=== PATIENT | male | born 1995 | race Caucasian/White ===

== ENCOUNTER 2018-04-27 19:41 | Emergency (ER) | payer OTHER ==
[~2018-04-27] VITALS: Ht 188 cm; Wt 88.0 kg
[2018-04-27 19:46] VITALS: Ht 188 cm; Wt 88.0 kg
[2018-04-28 06:21] VITALS: BP 137/79
== END 2018-04-28 06:21 | disposition home or self-care (01) ==
LOC: ED 19:41
DX: F20.89 Other schizophrenia (principal)

== ENCOUNTER 2018-05-08 17:39 | Emergency (ER) | payer OTHER ==
[~2018-05-08] VITALS: Ht 188 cm; Wt 81.6 kg
[2018-05-08 17:41] VITALS: BP 187/93; Ht 188 cm; Wt 81.6 kg
== END 2018-05-08 18:30 | disposition other institution (70) ==
LOC: ED 17:39
DX: S20.212A Contusion of left front wall of thorax, initial encounter (principal); S00.93XA Contusion of unspecified part of head, initial encounter; S80.212A Abrasion, left knee, initial encounter; S80.211A Abrasion, right knee, initial encounter; F15.10 Other stimulant abuse, uncomplicated; F20.9 Schizophrenia, unspecified; Y04.8XXA Assault by other bodily force, initial encounter; Y93.89 Activity, other specified; Y92.89 Other specified places as the place of occurrence of the external cause; Y99.8 Other external cause status

== ENCOUNTER 2018-05-08 17:39 | Emergency (ER) | payer OTHER | END 2018-05-08 18:30 | disposition other institution (70) | LOC: ED 17:39 | DX: Z02.89 Encounter for other administrative examinations (principal) ==

== ENCOUNTER 2018-06-06 02:21 | Emergency (ER) | payer OTHER ==
[~2018-06-06] VITALS: Ht 188 cm; Wt 77.6 kg
[2018-06-06 02:25] VITALS: BP 141/88; Ht 188 cm; Wt 77.6 kg
== END 2018-06-06 03:04 | disposition left against medical advice (07) ==
LOC: ED 02:21
DX: Z53.21 Procedure and treatment not carried out due to patient leaving prior to being seen by health care provider (principal)

== ENCOUNTER 2018-06-08 10:26 | Emergency (ER) | payer OTHER ==
[~2018-06-08] VITALS: Ht 188 cm; Wt 68.0 kg
[2018-06-08 10:35] VITALS: Ht 188 cm; Wt 68.0 kg
[2018-06-08 11:20] LABS: ALBUMIN 4.4 g/dL (3.4-5.0); ALKALINE PHOSPHATASE 98 U/L (46-116); ALT/SGPT 32 U/L (16-63); AST/SGOT 90 U/L (15-37); BILIRUBIN TOTAL 1.3 mg/dL (0.20-1.00); CARBON DIOXIDE 24.7 mmol/L (21-32); CREATININE SERUM 1.2 mg/dL (0.7-1.3); GFR1 > 60 mL/min; GLUCOSE SERUM 69 mg/dL (74-106); TOTAL PROTEIN, SERUM 7.6 g/dL (6.4-8.2)
[2018-06-08 11:32] LABS: CHLORIDE SERUM 98 mmol/L (98-107); POTASSIUM SERUM 3.4 mmol/L (3.5-5.1); SODIUM SERUM 135 mmol/L (136-145)
[2018-06-08 11:33] LABS: BASOPHIL % 0.5 % (0-2); PLATELET COUNT 275 x10^3mcL (130-400); RED CELL DISTRIBUTION WIDTH 13.4 % (11.5-14.5)
[2018-06-08 13:13] LABS: AMPHETAMINE QUAL UR POSITIVE (See below)
[2018-06-08 17:25] VITALS: BP 103/63
== END 2018-06-08 17:25 | disposition home or self-care (01) ==
LOC: ED 10:26
PROVIDERS: Emergency Medicine
DX: T43.621A Poisoning by amphetamines, accidental (unintentional), initial encounter (principal); G93.40 Encephalopathy, unspecified; F20.9 Schizophrenia, unspecified; X58.XXXA Exposure to other specified factors, initial encounter
CPT/HCPCS: 36415; 82962; G0480; Q0092; Q0163

== ENCOUNTER 2018-06-24 19:20 | Emergency (ER) | payer OTHER ==
[~2018-06-24] VITALS: Ht 182.9 cm; Wt 77.1 kg
[2018-06-24 19:29] VITALS: BP 129/81; Ht 182.9 cm; Wt 77.1 kg
== END 2018-06-24 19:51 | disposition left against medical advice (07) ==
LOC: ED 19:20
DX: R53.1 Weakness (principal); R51 Headache; F20.9 Schizophrenia, unspecified
CPT/HCPCS: 83880; G0480

== ENCOUNTER 2018-08-04 18:36 | Emergency (ER) | payer OTHER ==
[~2018-08-04] VITALS: Ht 188 cm; Wt 83.9 kg
[2018-08-04 18:44] VITALS: Ht 188 cm; Wt 83.9 kg
[2018-08-04 21:34] VITALS: BP 147/80
== END 2018-08-04 21:34 | disposition other institution (70) ==
LOC: ED 18:36
DX: F25.9 Schizoaffective disorder, unspecified (principal); R07.89 Other chest pain

== ENCOUNTER 2018-08-04 18:36 | Emergency (ER) | payer OTHER | END 2018-08-04 21:34 | disposition other institution (70) | LOC: ED 18:36 | DX: Z02.89 Encounter for other administrative examinations (principal) ==

== ENCOUNTER 2018-11-27 11:06 | Emergency (ER) | payer OTHER ==
[~2018-11-27] VITALS: Ht 188 cm; Wt 78.9 kg
[2018-11-27 11:18] VITALS: Ht 188 cm; Wt 78.9 kg
[2018-11-27 11:37] LABS: BASOPHIL % 0.3 % (0-2); PLATELET COUNT 242 x10^3mcL (130-400); RED CELL DISTRIBUTION WIDTH 13.6 % (11.5-14.5)
[2018-11-27 11:41] LABS: CALCIUM 8.4 mg/dL (8.5-10.1); CHLORIDE SERUM 104 mmol/L (98-107); CREATININE SERUM 0.8 mg/dL (0.7-1.3); GFR1 > 60 mL/min; GLUCOSE SERUM 106 mg/dL (74-106); POTASSIUM SERUM 3.8 mmol/L (3.5-5.1); SODIUM SERUM 140 mmol/L (136-145)
[2018-11-27 11:46] LABS: ALBUMIN 3.7 g/dL (3.4-5.0); ALKALINE PHOSPHATASE 104 U/L (46-116); ALT/SGPT 33 U/L (16-63); AST/SGOT 46 U/L (15-37); BILIRUBIN TOTAL 0.9 mg/dL (0.20-1.00); TOTAL PROTEIN, SERUM 6.9 g/dL (6.4-8.2)
[2018-11-27 11:47] LABS: CHOLESTEROL 102 mg/dL (<200)
[2018-11-27 14:09] LABS: AMPHETAMINE QUAL UR POSITIVE (See below)
[2018-11-27 14:25] VITALS: BP 138/74
== END 2018-11-27 14:25 | disposition left against medical advice (07) ==
LOC: ED 11:06
PROVIDERS: Specialist
DX: F15.10 Other stimulant abuse, uncomplicated (principal); F20.9 Schizophrenia, unspecified
CPT/HCPCS: G0480; J7030; Q0092

== ENCOUNTER 2018-12-05 09:13 | Emergency (ER) | payer OTHER ==
[~2018-12-05] VITALS: Ht 188 cm; Wt 75.3 kg
[2018-12-05 09:17] VITALS: BP 102/74; Ht 188 cm; Wt 75.3 kg
== END 2018-12-05 10:17 | disposition left against medical advice (07) ==
LOC: ED 09:13
DX: R42 Dizziness and giddiness (principal); R11.10 Vomiting, unspecified; R51 Headache; F20.9 Schizophrenia, unspecified; F19.10 Other psychoactive substance abuse, uncomplicated; Z59.0 Homelessness

== ENCOUNTER 2019-01-15 21:39 | Emergency (ER) | payer OTHER ==
[~2019-01-15] VITALS: Ht 188 cm; Wt 90.7 kg
[2019-01-15 21:41] VITALS: Ht 188 cm; Wt 90.7 kg
[2019-01-15 22:01] VITALS: BP 141/75
== END 2019-01-15 22:51 | disposition other institution (70) ==
LOC: ED 21:39
DX: Z02.89 Encounter for other administrative examinations (principal)

== ENCOUNTER 2019-05-20 08:53 | Emergency (ER) | payer OTHER ==
[~2019-05-20] VITALS: Ht 188 cm; Wt 81.6 kg
[2019-05-20 08:57] VITALS: Ht 188 cm; Wt 81.6 kg
[2019-05-20 10:21] LABS: BASOPHIL % 0.6 % (0-2); PLATELET COUNT 349 x10^3mcL (130-400)
[2019-05-20 10:30] LABS: CALCIUM 8.7 mg/dL (8.5-10.1); CARBON DIOXIDE 28.2 mmol/L (21-32); CHLORIDE SERUM 101 mmol/L (98-107); CREATININE SERUM 0.8 mg/dL (0.7-1.3); GFR1 > 60 mL/min; GLUCOSE SERUM 92 mg/dL (74-106); POTASSIUM SERUM 3.7 mmol/L (3.5-5.1); SODIUM SERUM 139 mmol/L (136-145)
[2019-05-20 10:35] LABS: ALBUMIN 4.3 g/dL (3.4-5.0); ALKALINE PHOSPHATASE 102 U/L (46-116); ALT/SGPT 45 U/L (16-63); AST/SGOT 49 U/L (15-37); BILIRUBIN TOTAL 0.94 mg/dL (0.20-1.00); LIPASE 69 IU/L (73-393)
[2019-05-20 12:01] VITALS: BP 136/82
== END 2019-05-20 12:01 | disposition home or self-care (01) ==
LOC: ED 08:53
PROVIDERS: Emergency Medicine
DX: K29.70 Gastritis, unspecified, without bleeding (principal); F15.90 Other stimulant use, unspecified, uncomplicated; F20.9 Schizophrenia, unspecified
CPT/HCPCS: J1885; J2405; J7030; Q0092

== ENCOUNTER 2019-05-29 08:45 | Emergency (ER) | payer OTHER ==
[~2019-05-29] VITALS: Ht 188 cm; Wt 75.3 kg
[2019-05-29 08:51] VITALS: Ht 188 cm; Wt 75.3 kg
[2019-05-29 10:07] VITALS: BP 142/78
== END 2019-05-29 10:07 | disposition home or self-care (01) ==
LOC: ED 08:45
DX: S20.219A Contusion of unspecified front wall of thorax, initial encounter (principal); R11.10 Vomiting, unspecified; R19.7 Diarrhea, unspecified; F19.10 Other psychoactive substance abuse, uncomplicated; F20.9 Schizophrenia, unspecified; Y04.0XXA Assault by unarmed brawl or fight, initial encounter; Y93.89 Activity, other specified; Y92.89 Other specified places as the place of occurrence of the external cause; Y99.8 Other external cause status
CPT/HCPCS: Q0092

== ENCOUNTER 2019-07-29 10:02 | Emergency (ER) | payer OTHER ==
[~2019-07-29] VITALS: Ht 188 cm; Wt 75.7 kg
[2019-07-29 10:11] VITALS: Ht 188 cm; Wt 75.7 kg
[2019-07-29 10:45] VITALS: BP 116/73
== END 2019-07-29 11:30 | disposition home or self-care (01) ==
LOC: ED 10:02
DX: F15.10 Other stimulant abuse, uncomplicated (principal); F12.10 Cannabis abuse, uncomplicated; R11.2 Nausea with vomiting, unspecified
CPT/HCPCS: Q0162

== ENCOUNTER 2019-08-15 23:54 | Emergency (ER) | payer OTHER ==
[~2019-08-15] VITALS: Ht 172.7 cm; Wt 74.1 kg
[2019-08-16 01:42] VITALS: BP 161/98
== END 2019-08-16 01:42 | disposition home or self-care (01) ==
LOC: ED 23:54
DX: F15.10 Other stimulant abuse, uncomplicated (principal)

== ENCOUNTER 2019-08-23 13:07 | Emergency (ER) | payer OTHER ==
[~2019-08-23] VITALS: Ht 182.9 cm; Wt 63.5 kg
[2019-08-23 13:25] VITALS: Ht 182.9 cm; Wt 63.5 kg
[2019-08-23] MEDS ORDERED: ALENDRONATE SOD70 M3 PO (18:33)
[2019-08-23] MEDS ORDERED: LIPI20 PO (18:33)
[2019-08-23] MEDS ORDERED: FLOVENT DI100 MCG/A1 IH (18:34)
[2019-08-23] MEDS ORDERED: CHLORTHALIDONE25 MG PO (18:34)
[2019-08-23] MEDS ORDERED: PHARMASSURE FO0.4 MG PO (18:34)
[2019-08-23] MEDS ORDERED: METHOTREXATE2.5 M2 PO (18:35)
[2019-08-23] MEDS ORDERED: SINGULAIR10 MG PO (18:35)
[2019-08-23] MEDS ORDERED: LOSARTAN POTAS100 M1 PO (18:35)
[2019-08-23] MEDS ORDERED: LEVOTHYROXIN0.075 M2 PO (18:35)
[2019-08-23] MEDS ORDERED: K-TAB20 MEQ PO (18:37)
[2019-08-23] MEDS ORDERED: PROAIR HFA8.5 GM (18:37)
[2019-08-23] MEDS ORDERED: OYSCO 500-VIT1 EACH PO (18:37)
[2019-08-23] MEDS ORDERED: NOR10 PO (18:38)
[2019-08-23] MEDS ORDERED: ZOLOFT100 MG PO (18:38)
[2019-08-23] MEDS ORDERED: RESTORIL15 MG PO (18:38)
[2019-08-23 21:15] LABS: BASOPHIL % 0.3 % (0-2); PLATELET COUNT 391 x10^3mcL (130-400)
[2019-08-23 21:38] LABS: CARBON DIOXIDE 28.3 mmol/L (21-32); CHLORIDE SERUM 104 mmol/L (98-107); CREATININE SERUM 0.7 mg/dL (0.7-1.3); GFR1 > 60 mL/min; GLUCOSE SERUM 89 mg/dL (74-106); POTASSIUM SERUM 3.7 mmol/L (3.5-5.1); SODIUM SERUM 140 mmol/L (136-145)
[2019-08-23 21:44] LABS: ALBUMIN 3.7 g/dL (3.4-5.0); ALKALINE PHOSPHATASE 99 U/L (46-116); ALT/SGPT 42 U/L (16-63); AST/SGOT 39 U/L (15-37); BILIRUBIN TOTAL 0.91 mg/dL (0.20-1.00); T4(THYROXINE) 7.2 ug/dL (4.7-13.3); TOTAL PROTEIN, SERUM 7.4 g/dL (6.4-8.2)
[2019-08-23 22:16] LABS: AMPHETAMINE QUAL UR POSITIVE (See below)
[2019-08-24 08:04] VITALS: BP 122/81
== END 2019-08-24 08:04 | disposition home or self-care (01) ==
LOC: ED 13:07
PROVIDERS: Emergency Medicine
DX: R41.0 Disorientation, unspecified (principal); F15.20 Other stimulant dependence, uncomplicated; F20.9 Schizophrenia, unspecified
CPT/HCPCS: 36415; G0480; J1630; J2060; J3490

== ENCOUNTER 2019-11-12 19:34 | Emergency (ER) | payer OTHER ==
[~2019-11-12] VITALS: Ht 182.9 cm; Wt 74.6 kg
[~2019-11-12 19:34] MED LIST: ALENDRONATE SOD70 M3 PO; CHLORTHALIDONE25 MG PO; FLOVENT DI100 MCG/A1 IH; K-TAB20 MEQ PO; LEVOTHYROXIN0.075 M2 PO; LIPI20 PO; LOSARTAN POTAS100 M1 PO; METHOTREXATE2.5 M2 PO; NOR10 PO; OYSCO 500-VIT1 EACH PO; PHARMASSURE FO0.4 MG PO; PROAIR HFA8.5 GM; RESTORIL15 MG PO; SINGULAIR10 MG PO; ZOLOFT100 MG PO
[2019-11-12 20:05] VITALS: Ht 182.9 cm; Wt 74.6 kg
[2019-11-12 20:43] VITALS: BP 125/78
== END 2019-11-12 20:43 | disposition home or self-care (01) ==
LOC: ED 19:34
DX: J45.909 Unspecified asthma, uncomplicated (principal)

== ENCOUNTER 2019-11-16 12:17 | Emergency (ER) | payer OTHER | END 2019-11-16 16:15 | disposition left against medical advice (07) | LOC: ED 12:17 | DX: Z53.21 Procedure and treatment not carried out due to patient leaving prior to being seen by health care provider (principal) ==

== ENCOUNTER 2019-12-24 02:39 | Emergency (ER) | payer OTHER ==
[~2019-12-24] VITALS: Ht 188 cm; Wt 71.4 kg
[2019-12-24 02:42] VITALS: Ht 188 cm; Wt 71.4 kg
[2019-12-24 04:17] VITALS: BP 119/79
== END 2019-12-24 04:17 | disposition home or self-care (01) ==
LOC: ED 02:39
DX: L03.115 Cellulitis of right lower limb (principal)
CPT/HCPCS: Q0092

== ENCOUNTER 2019-12-27 15:27 | Emergency (ER) | payer OTHER ==
[~2019-12-27] VITALS: Ht 188 cm; Wt 71.7 kg
[2019-12-27 15:32] VITALS: Ht 188 cm; Wt 71.7 kg
[2019-12-27 15:50] LABS: BASOPHIL % 0.8 % (0-2); PLATELET COUNT 366 x10^3mcL (130-400)
[2019-12-27 16:22] LABS: AMPHETAMINE QUAL UR POSITIVE (See below)
[2019-12-27 16:37] LABS: CALCIUM 9.3 mg/dL (8.5-10.1); CARBON DIOXIDE 30.1 mmol/L (21-32); CHLORIDE SERUM 109 mmol/L (98-107); CREATININE SERUM 0.8 mg/dL (0.7-1.3); GFR1 > 60 mL/min; GLUCOSE SERUM 105 mg/dL (74-106); POTASSIUM SERUM 3.6 mmol/L (3.5-5.1); SODIUM SERUM 147 mmol/L (136-145)
[2019-12-27 16:49] LABS: ALBUMIN 3.6 g/dL (3.4-5.0); ALKALINE PHOSPHATASE 113 U/L (46-116); ALT/SGPT 35 U/L (16-63); AST/SGOT 25 U/L (15-37); BILIRUBIN TOTAL 0.3 mg/dL (0.20-1.00); T4(THYROXINE) 7.1 ug/dL (4.7-13.3); TOTAL PROTEIN, SERUM 7.1 g/dL (6.4-8.2)
[2019-12-28 09:50] VITALS: BP 119/71
== END 2019-12-28 09:50 | disposition home or self-care (01) ==
LOC: ED 15:27
PROVIDERS: Emergency Medicine
DX: F29 Unspecified psychosis not due to a substance or known physiological condition (principal); F19.10 Other psychoactive substance abuse, uncomplicated
CPT/HCPCS: 36415; G0480

== ENCOUNTER 2019-12-29 16:37 | Emergency (ER) | payer OTHER ==
[~2019-12-29] VITALS: Ht 188 cm; Wt 83.9 kg
[2019-12-29 16:40] VITALS: Ht 188 cm; Wt 83.9 kg
[2019-12-29 17:14] LABS: BASOPHIL % 0.8 % (0-2); PLATELET COUNT 305 x10^3mcL (130-400); RED CELL DISTRIBUTION WIDTH 12.8 % (11.5-14.5)
[2019-12-29 17:21] LABS: CALCIUM 8.5 mg/dL (8.5-10.1); CARBON DIOXIDE 31.1 mmol/L (21-32); CHLORIDE SERUM 109 mmol/L (98-107); CREATININE SERUM 0.7 mg/dL (0.7-1.3); GFR1 > 60 mL/min; GLUCOSE SERUM 98 mg/dL (74-106); POTASSIUM SERUM 4.2 mmol/L (3.5-5.1); SODIUM SERUM 146 mmol/L (136-145)
[2019-12-29 17:27] LABS: ALKALINE PHOSPHATASE 132 U/L (46-116); ALT/SGPT 27 U/L (16-63); AST/SGOT 13 U/L (15-37); BILIRUBIN TOTAL 0.2 mg/dL (0.20-1.00); TOTAL PROTEIN, SERUM 6.5 g/dL (6.4-8.2)
[2019-12-29 17:28] LABS: ALBUMIN 3.3 g/dL (3.4-5.0)
[2019-12-29 18:58] VITALS: BP 124/76
== END 2019-12-29 18:45 | disposition home or self-care (01) ==
LOC: ED 16:37
PROVIDERS: Emergency Medicine
DX: K29.20 Alcoholic gastritis without bleeding (principal)
CPT/HCPCS: 36415; Q0092

== ENCOUNTER 2020-01-29 00:25 | Emergency (ER) | payer OTHER ==
[~2020-01-29] VITALS: Ht 188 cm; Wt 68.0 kg
[2020-01-29 00:27] VITALS: Ht 188 cm; Wt 68.0 kg
[2020-01-29 00:52] VITALS: BP 150/91
== END 2020-01-29 00:52 | disposition other institution (70) ==
LOC: ED 00:25
DX: Z02.89 Encounter for other administrative examinations (principal)

== ENCOUNTER 2020-03-21 15:55 | Emergency (ER) | payer OTHER ==
[~2020-03-21] VITALS: Ht 195.6 cm; Wt 86.2 kg
[2020-03-21 15:57] VITALS: Ht 195.6 cm; Wt 86.2 kg
[2020-03-21 16:25] VITALS: BP 134/82
== END 2020-03-21 16:25 | disposition left against medical advice (07) ==
LOC: ED 15:55
DX: R10.9 Unspecified abdominal pain (principal); F17.210 Nicotine dependence, cigarettes, uncomplicated

== ENCOUNTER 2020-03-24 05:06 | Emergency (ER) | payer OTHER | END 2020-03-24 05:12 | disposition left against medical advice (07) | LOC: ED 05:06 | DX: Z53.21 Procedure and treatment not carried out due to patient leaving prior to being seen by health care provider (principal) ==

== ENCOUNTER 2020-05-15 13:51 | Emergency (ER) | payer OTHER | END 2020-05-15 14:04 | disposition left against medical advice (07) | LOC: ED 13:51 | DX: Z53.21 Procedure and treatment not carried out due to patient leaving prior to being seen by health care provider (principal) ==

== ENCOUNTER 2020-06-09 19:25 | Emergency (ER) | payer OTHER, SELFPAY ==
[~2020-06-09] VITALS: Ht 188 cm; Wt 81.6 kg
[2020-06-09 19:27] VITALS: Ht 188 cm; Wt 81.6 kg
[2020-06-09 19:52] LABS: BASOPHIL % 0.7 % (0-2); PLATELET COUNT 294 x10^3mcL (130-400)
[2020-06-09 20:15] LABS: ALKALINE PHOSPHATASE 95 U/L (46-116); ALT/SGPT 24 U/L (16-63); AST/SGOT 13 U/L (15-37); BILIRUBIN TOTAL 0.25 mg/dL (0.20-1.00); CALCIUM 8.1 mg/dL (8.5-10.1); CHLORIDE SERUM 104 mmol/L (98-107); CREATININE SERUM 0.8 mg/dL (0.7-1.3); GFR1 > 60 mL/min; GLUCOSE SERUM 123 mg/dL (74-106); POTASSIUM SERUM 3.8 mmol/L (3.5-5.1); SODIUM SERUM 139 mmol/L (136-145); TOTAL PROTEIN, SERUM 6.4 g/dL (6.4-8.2)
[2020-06-09 20:16] LABS: ALBUMIN 3.3 g/dL (3.4-5.0)
[2020-06-09 20:26] LABS: CARBON DIOXIDE 27.5 mmol/L (21-32)
[2020-06-09 20:44] LABS: AMPHETAMINE QUAL UR NONE DETECTED (See below)
[2020-06-09 22:04] VITALS: BP 127/76
== END 2020-06-09 22:04 | disposition left against medical advice (07) ==
LOC: ED 19:25
PROVIDERS: Emergency Medicine
DX: R45.851 Suicidal ideations (principal); F15.10 Other stimulant abuse, uncomplicated; F10.10 Alcohol abuse, uncomplicated; F12.10 Cannabis abuse, uncomplicated; Z20.828 Contact with and (suspected) exposure to other viral communicable diseases
CPT/HCPCS: G0480; Q0092; U0003-CS

== ENCOUNTER 2020-07-27 20:10 | Emergency (ER) | payer OTHER ==
[~2020-07-27] VITALS: Ht 188 cm; Wt 77.1 kg
[2020-07-27 20:24] VITALS: Ht 188 cm; Wt 77.1 kg
[2020-07-28 07:13] VITALS: BP 119/64
== END 2020-07-28 07:13 | disposition home or self-care (01) ==
LOC: ED 20:10
DX: M79.672 Pain in left foot (principal); M79.671 Pain in right foot